=== PATIENT | female | born 2000 | race Caucasian/White ===

== ENCOUNTER 2021-09-06 22:09 | Emergency (ER) | payer BC, OTHER ==
[~2021-09-06] VITALS: Ht 165.1 cm; Wt 115.7 kg
[2021-09-06 22:30] VITALS: BP 133/95
--- NOTE | 2021-09-06 22:39 | ED General ---
General Stated Complaint: HEADACHE/BACK NECK PAIN/CHILLS/CHEST PAIN/COUGH Source of Information: Patient Exam Limitations: No Limitations (WILDER PIZARRO APRN) History of Present Illness Date Seen by Provider: Sep 06, 2021 Time Seen by Provider: 22:37 Initial Comments To ER with sudden onset of headache back pain neck pain chest pain chills cough fever this evening. She also has nausea. She took 2 pills that her gave her to control the fever. She is not sure what the pills were or what time she took them. Timing/Duration: 4-6 Hours Severity: Moderate Associated Systoms: Fever/Chills, Nausea/Vomiting (WILDER PIZARRO APRN) Allergies and Home Medications Allergies Coded Allergies: nickel (Verified Allergy, Unknown, 09/06/21) Patient Home Medication List Home Medication List Reviewed: Yes (NORA PAREDES) Ondansetron (Ondansetron Odt) 8 Mg Tab.rapdis, 8 MG PO Q6H PRN for NAUSEA/VOMITING Prescribed by: WILDER PIZARRO on 09/06/21 [id number] Last Action: New Order Review of Systems Review of Systems Constitutional: No chills; fever, malaise EENTM: No ear discharge, No ear pain Respiratory: cough, short of breath Cardiovascular: chest pain; No edema Gastrointestinal: abdominal pain, nausea, vomiting Genitourinary: No discharge, No dysuria (NORA PAREDES) All Other Systems Reviewed Negative Unless Noted: Yes (NORA PAREDES) Past Bgzjgft-[id number]-Ugdjtc Hx Patient Social History Tobacco Use?: No Use of E-Cig and/or Vaping dev: No (NORA PAREDES) Physical Exam Vital Signs Vital Signs - First Documented 09/06/21 22:30 Temp 37.8 Pulse 140 Resp 24 B/P (MAP) 133/95 (108) Pulse Ox 98 O2 Delivery Room Air (NORA PAREDES) Vital Signs Capillary Refill : (WILDER PIZARRO APRN) Height, Weight, BMI Height: '" Weight: lbs. oz. kg; BMI Method: General Appearance: No Apparent Distress, WD/WN, Obese Eyes: Bilateral Eye Normal Inspection, Bilateral Eye PERRL, Bilateral Eye EOMI HEENT: PERRL/EOMI, TMs Normal Neck: Full Range of Motion, Normal Inspection Respiratory: No Accessory Muscle Use, No Respiratory Distress Cardiovascular: Normal Peripheral Pulses, Tachycardia Gastrointestinal: Normal Bowel Sounds, Non Tender, Soft Neurologic/Psychiatric: Alert, Oriented x3 Skin: Normal Color, Warm/Dry (WILDER PIZARRO APRN) Progress/Results/Core Measures Suspected Sepsis SIRS Temperature: Pulse: Respiratory Rate: Blood Pressure / Mean: (WILDER PIZARRO APRN) Results/Orders Lab Results Laboratory Tests Test 09/06/21 22:30 Range/Units White Blood Count 11.0 4.3-11.0 10^3/uL Red Blood Count 5.17 H 3.80-5.11 10^6/uL Hemoglobin 13.0 11.5-16.0 g/dL Hematocrit 42 35-52 % Mean Corpuscular Volume 81 80-99 fL Mean Corpuscular Hemoglobin 25 25-34 pg Mean Corpuscular Hemoglobin Concent 31 L 32-36 g/dL Red Cell Distribution Width 13.2 10.0-14.5 % Platelet Count 295 130-400 10^3/uL Mean Platelet Volume 10.2 9.0-12.2 fL Immature Granulocyte % (Auto) 1 % Neutrophils (%) (Auto) 80 H 42-75 % Lymphocytes (%) (Auto) 8 L 12-44 % Monocytes (%) (Auto) 10 0-12 % Eosinophils (%) (Auto) 1 0-10 % Basophils (%) (Auto) 1 0-10 % Neutrophils # (Auto) 8.9 H 1.8-7.8 10^3/uL Lymphocytes # (Auto) 0.9 L 1.0-4.0 10^3/uL Monocytes # (Auto) 1.1 H 0.0-1.0 10^3/uL Eosinophils # (Auto) 0.1 0.0-0.3 10^3/uL Basophils # (Auto) 0.1 0.0-0.1 10^3/uL Immature Granulocyte # (Auto) 0.1 0.0-0.1 10^3/uL Sodium Level 134 L 135-145 MMOL/L Potassium Level 3.9 3.6-5.0 MMOL/L Chloride Level 103 98-107 MMOL/L Carbon Dioxide Level 21 21-32 MMOL/L Anion Gap 10 5-14 MMOL/L Blood Urea Nitrogen 10 7-18 MG/DL Creatinine 0.89 0.60-1.30 MG/DL Estimat Glomerular Filtration Rate 93 BUN/Creatinine Ratio 11 Glucose Level 99 70-105 MG/DL Calcium Level 9.2 8.5-10.1 MG/DL Serum Test, Qualitative NEGATIVE NEGATIVE Coronavirus (COVID-19)(PCR) Negative Negative Influenza Type A Antigen NEGATIVE NEGATIVE Influenza Type B Antigen NEGATIVE NEGATIVE (NORA PAREDES) Vital Signs/I&O 09/06/21 09/06/21 09/07/21 22:30 22:30 00:25 Temp 37.8 37.1 Pulse 140 120 Resp 24 18 B/P (MAP) 133/95 (108) Pulse Ox 98 99 O2 Delivery Room Air Room Air Room Air (NORA PAREDES) Vital Signs/I&O Capillary Refill : (WILDER PIZARRO APRN) Departure Impression Primary Impression: Viral syndrome Disposition: 01 HOME, SELF-CARE Condition: Critical Departure-Patient Inst. Decision time for Depature: 22:38 (WILDER PIZARRO APRN) Patient Instructions: Viral Syndrome (DC) Add. Discharge Instructions: 1. Tylenol and Motrin for pain and fever 2. Nausea meds as directed. Scripts Ondansetron (Ondansetron Odt) 8 Mg Tab.rapdis 8 MG PO Q6H PRN for NAUSEA/VOMITING, #10 TAB Prov: WILDER PIZARRO APRN 09/06/21 Work/School Note: Work Release Form Date Seen in the Emergency Department: Sep 06, 2021 Return to Work: Sep 10, 2021 WILDER PIZARRO APRN Sep 06, 2021 22:39 NORA PAREDES Sep 09, 2021 17:51
[2021-09-06 22:43] LABS: BASOPHILS # (AUTO) 0.1 10^3/uL (0.0-0.1); BASOPHILS % (AUTO) 1 % (0-10); EOSINOPHILS # (AUTO) 0.1 10^3/uL (0.0-0.3); EOSINOPHILS % (AUTO) 1 % (0-10); HEMATOCRIT 42 % (35-52); LYMPHOCYTES # (AUTO) 0.9 10^3/uL (1.0-4.0); LYMPHOCYTES % (AUTO) 8 % (12-44); MEAN CORPUSCULAR HEMOGLOBIN 25 pg (25-34); MEAN CORPUSCULAR HGB CONC 31 g/dL (32-36); MEAN CORPUSCULAR VOLUME 81 fL (80-99); MEAN PLATELET VOLUME 10.2 fL (9.0-12.2); MONOCYTES # (AUTO) 1.1 10^3/uL (0.0-1.0); MONOCYTES % (AUTO) 10 % (0-12); NEUTROPHILS # (AUTO) 8.9 10^3/uL (1.8-7.8); NEUTROPHILS % (AUTO) 80 % (42-75); PLATELET COUNT 295 10^3/uL (130-400)
[2021-09-06] MEDS ORDERED: ONDANSETRON 4 MG/2 ML (SDV) Z0FRAN IVP ONE (22:45)
[2021-09-06] MEDS ORDERED: LACTATED RINGERS 1,000 ML IV SCH (22:45)
[2021-09-06] MEDS ORDERED: IBUPROFEN 800 MG (MOTRIN) TAB PO ONE (22:45)
[2021-09-06] MEDS ORDERED: ONDA8TAB13 PO (22:47)
[2021-09-06 22:53] LABS: POTASSIUM 3.9 MMOL/L (3.6-5.0)
[2021-09-06 22:54] LABS: CALCIUM 9.2 MG/DL (8.5-10.1)
[2021-09-06 22:59] LABS: CREATININE SERUM 0.89 MG/DL (0.60-1.30)
== END 2021-09-07 00:26 | disposition home or self-care (01) ==
LOC: ER 22:14
DX: B34.9 Viral infection, unspecified (principal); E66.9 Obesity, unspecified; Z20.822 Contact with and (suspected) exposure to COVID-19
CPT/HCPCS: 36415; 80048; 84703; 85025; 87635; 87804